=== PATIENT | female | born 1990 | race Caucasian/White ===

== ENCOUNTER 2016-10-06 08:16 | Emergency (ER) | payer BC, MEDICAID ==
[2016-10-06 08:21] VITALS: TEMP 99.1
[2016-10-06] MEDS ORDERED: ONDANSETRON 4 MG/2 ML VIAL IVP ONE (08:33)
[2016-10-06] MEDS ORDERED: NS 1,000 ML IV ONE (08:33)
[2016-10-06] MEDS ORDERED: PROPARACAINE 0.5% 15 ML OPHT DROP ONE (08:35)
[2016-10-06] MEDS ORDERED: FLUORESCEIN SODIUM 1 MG STRIP OP ONE (08:35)
[2016-10-06] MEDS ORDERED: KETOROLAC 15 MG/1 ML SDV IVP ONE (08:47)
[2016-10-06] MEDS ORDERED: ACETAMINOPHEN 325 MG TAB PO ONE (08:48)
[2016-10-06] MEDS ORDERED: PROMETHAZINE HCL 25 MG/ML INJ IVP ONE (08:48)
[2016-10-06 09:08] LABS: % IMMATURE GRANULYOCYTES 0.4 % (0.0-1.1); ABSOLUTE IMMATURE GRANULOCYTES 0.03 10^3/uL (0.00-0.10); ADD DIFF? NO; ADD MORPH? NO; ADD SCAN? NO; ATYPICAL LYMPHOCYTE FLAG 0 (0-99); FRAGMENT RBC FLAG 0 (0-99); HEMATOCRIT 46.2 % (38.0-47.0); HEMOGLOBIN 15.7 g/dL (12.6-16.3); LEFT SHIFT FLG 0 (0-99); LIPEMIA HEMOLYSIS FLAG 90 (0-99); MEAN CELL HEMOGLOBIN 29.8 pg (27.9-34.1); MEAN CELL VOLUME 87.8 fL (81.5-99.8); MEAN PLATELET VOLUME 9.1 fL (8.7-11.7); PLATELET CLUMPS FLAG 10 (0-99); PLATELET COUNT 254 10^3/uL (150-400); RED BLOOD CELL COUNT 5.26 10^6/uL (4.18-5.33); RED CELL DISTRIBUTION WIDTH 13.1 % (11.5-15.2)
[2016-10-06 09:16] LABS: ANION GAP 14 mEq/L (8-16); CALCIUM 9.4 mg/dL (8.5-10.4); CARBON DIOXIDE 21 mEq/l (22-31); CHLORIDE 106 mEq/L (97-110); CREATININE 0.7 mg/dL (0.6-1.0); GLOMERULAR FILTRATION RATE > 60; GLUCOSE 81 mg/dL (70-100); POTASSIUM 4.2 mEq/L (3.5-5.2); SODIUM 141 mEq/L (134-144)
--- NOTE | 2016-10-06 09:19 | EDPHY ---
H & P Stated Complaint: Migraine;+photophobia,n/v Time Seen by Provider: 10/06/16 08:17 HPI/ROS: CHIEF COMPLAINT: Headache HISTORY OF PRESENT ILLNESS: 26-year-old female with history of migraine headaches presents the emergency department complaining a migraine headache. Patient states that she started with a mild headache for the last 4 days that didn't feel like her typical migraine so she did not take the Fiorcet that was prescribed to her for migraines until it was too late. She took it last night when her headache increased and then vomited and was not able to keep anything down. Patient reports this is her typical migraine though worse. She denies fevers, chills, confusion. Patient reports she feels unsteady her feet, patient stumbled going to the bathroom today striking her head on the wall. No LOC, she remembers then entire event. Pt denies paresthesias. She has never seen a neurologist. Pt reports she has not been sleeping well for the last couple months and she has increased life stressors. No abdominal pain, chest pain, SOB. No cough or cold symptoms, no urinary symptoms. REVIEW OF SYSTEMS: A comprehensive 10 point review of systems is otherwise negative aside from elements mentioned in the history of present illness. Source: Patient, Family Exam Limitations: No limitations - Personal History LMP (Females 10-55): Extended Cycle BCP/Inj Current Tetanus Diphtheria and Acellular Pertussis (TDAP): Yes - Medical/Surgical History Hx Asthma: No Hx Chronic Respiratory Disease: No Hx Diabetes: No Hx Cardiac Disease: No Hx Renal Disease: No Hx Cirrhosis: No Hx Alcoholism: No Hx HIV/AIDS: No Hx Splenectomy or Spleen Trauma: No Other PMH: anxiety, , migraines - Social History Smoking Status: Never smoked - Physical Exam Exam: Physical Exam Gen: Alert and Oriented, eyes closed during exam, tearful HEENT: PERRL, moist mucous membranes NECK: no meningismus CV: regular rate and regular rhythm PULM: CTAB, no wheezes ABDOMEN: soft, non tender to palpation, BS present BACK: No CVA tenderness NEURO: Neurologically grossly intact EXTREMITIES: normal appearing SKIN: no rash or break in skin on exposed skin PSYCH: answers questions appropriately. Constitutional: Initial Vital Signs Temperature (C) 37.3 C 10/06/16 08:20 Heart Rate 90 10/06/16 08:20 Respiratory Rate 16 10/06/16 08:20 Blood Pressure 129/91 H 10/06/16 08:20 O2 Sat (%) 97 10/06/16 08:20 O2 Delivery Mode Room Air Allergies/Adverse Reactions: No Known Allergies Allergy (Verified 10/06/16 08:18) Home Medications: Medication Instructions Recorded Acet/Caffeine/Buta Fioricet 1 each PO 10/06/16 [Fioricet (*)] Ondansetron Odt [Zofran Odt 4 mg 4 mg PO 10/06/16 (*)] Medical Decision Making - Diagnostics Imaging Results: Imaging Impressions Head CT 10/06/16 09:00 Impression: 1. There is no acute abnormality identified on this unenhanced CT evaluation. 2. 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 If there is further clinical concern regarding the patient's symptoms, MR imaging is suggested, if not otherwise contraindicated. Findings were discussed with Taylor Liang NP at 10:07, on 10/06/2016. Imaging: Discussed imaging studies w/ longwall machine operator helper Radiologist ED Course/Re-evaluation: IV established, CBC, chemistry panel obtained. CT brain ordered due to different nature of patients headache. Patient is given a migraine cocktail much improvement in her headache. 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 No acute abnormality. I discussed these results with the patient and her mother. She is given Neurology for follow-up. I have also discussed her stress and depression and given her information for [facility]. She has also been given [facility]. Patient is comfortable with this plan, she is given return precautions for worsening symptoms, new symptoms or concerns. Differential Diagnosis: The differential diagnosis for the patient's headache included but was not limited to subarachnoid hemorrhage, migraine headache, tension headache and infectious causes such as meningitis, pharyngitis and sinusitis. - Data Points Laboratory Results: Laboratory Results 10/06/16 08:40 10/06/16 08:40 10/06/16 10/06/16 10/06/16 08:40 08:40 08:40 WBC 6.76 10^3/uL 10^3/uL (3.80-9.50) RBC 5.26 10^6/uL 10^6/uL (4.18-5.33) Hgb 15.7 g/dL g/dL (12.6-16.3) Hct 46.2 % % (38.0-47.0) MCV 87.8 fL fL (81.5-99.8) MCH 29.8 pg pg (27.9-34.1) MCHC 34.0 g/dL g/dL (32.4-36.7) RDW 13.1 % % (11.5-15.2) Plt Count 254 10^3/uL 10^3/uL (150-400) MPV 9.1 fL fL (8.7-11.7) Neut % (Auto) 69.0 % % (39.3-74.2) Lymph % (Auto) 23.4 % % (15.0-45.0) Duval % (Auto) 5.6 % % (4.5-13.0) Eos % (Auto) 1.2 % % (0.6-7.6) Baso % (Auto) 0.4 % % (0.3-1.7) Nucleat RBC Rel Count 0.0 % % (0.0-0.2) Absolute Neuts (auto) 4.66 10^3/uL 10^3/uL (1.70-6.50) Absolute Lymphs (auto) 1.58 10^3/uL 10^3/uL (1.00-3.00) Absolute Monos (auto) 0.38 10^3/uL 10^3/uL (0.30-0.80) Absolute Eos (auto) 0.08 10^3/uL 10^3/uL (0.03-0.40) Absolute Basos (auto) 0.03 10^3/uL 10^3/uL (0.02-0.10) Absolute Nucleated RBC 0.00 10^3/uL 10^3/uL (0-0.01) Immature Gran % 0.4 % % (0.0-1.1) Immature Gran # 0.03 10^3/uL 10^3/uL (0.00-0.10) Sodium 141 mEq/L mEq/L (134-144) Potassium 4.2 mEq/L mEq/L (3.5-5.2) Chloride 106 mEq/L mEq/L (97-110) Carbon Dioxide 21 mEq/l L mEq/l (22-31) Anion Gap 14 mEq/L mEq/L (8-16) BUN 6 mg/dL L mg/dL (7-23) Creatinine 0.7 mg/dL mg/dL (0.6-1.0) Estimated GFR > 60 Glucose 81 mg/dL mg/dL (70-100) Calcium 9.4 mg/dL mg/dL (8.5-10.4) Beta HCG, Qual NEGATIVE Medications Given: Discontinued Medications Acetaminophen (Tylenol) 650 mg PO EDNOW ONE Stop: 10/06/16 08:49 Last Admin: 10/06/16 09:08 Dose: 650 mg Dexamethasone (Decadron Injection) 10 mg IVP EDNOW ONE Stop: 10/06/16 10:34 Last Admin: 10/06/16 10:57 Dose: 10 mg Diphenhydramine HCl (Benadryl Injection) 50 mg IVP EDNOW ONE Stop: 10/06/16 08:48 Last Admin: 10/06/16 09:07 Dose: 50 mg Sodium Chloride (Ns) 1,000 mls @ 0 mls/hr IV ONCE ONE PRN Reason: Wide Open Stop: 10/06/16 08:34 Last Admin: 10/06/16 08:38 Dose: 1,000 mls Ketorolac Tromethamine (Toradol) 15 mg IVP EDNOW ONE Stop: 10/06/16 08:48 Last Admin: 10/06/16 09:08 Dose: 15 mg Ondansetron HCl (Zofran) 4 mg IVP EDNOW ONE Stop: 10/06/16 08:34 Last Admin: 10/06/16 08:38 Dose: 4 mg Promethazine HCl (Phenergan) 12.5 mg IVP EDNOW ONE Stop: 10/06/16 08:49 Last Admin: 10/06/16 09:06 Dose: 12.5 mg Departure - Departure Disposition: Home, Routine, Self-Care Clinical Impression: Headache Qualifiers: Headache type: unspecified Headache chronicity pattern: acute headache Intractability: not intractable Qualified Code(s): R51 - Headache Condition: Good Instructions: Migraine Headache (ED), General Headache (ED) Additional Instructions: Follow up with neurology. Call Friday to schedule this appointment. 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 Take your migraine medications as prescribed. Establish care with the primary care doctor listed. Follow up with [facility]. Return to the emergency department for any fevers, confusion, worsening symptoms. Referrals: Hernan Maharaj DO [Medical Doctor] - As per Instructions (Neurologist exploration engineer) [facility],. [Clinic] - As per Instructions (Family practice) [facility],. [Clinic] - As per Instructions
[2016-10-06] MEDS ORDERED: DEXAMETHASONE 10 MG/ML VIAL IVP ONE (10:33)
[2016-10-06 10:52] VITALS: BP 117/56; PULSE 76; RESP 18; O2SAT 95
== END 2016-10-06 11:03 | disposition home or self-care (01) ==
DX: R51 Headache (principal); R11.10 Vomiting, unspecified
CPT/HCPCS: 96374; J1100; J1200; J1885; J2405; J2550

== ENCOUNTER 2016-10-06 21:24 | Emergency (ER) | payer MEDICAID ==
--- NOTE | 2016-10-06 21:40 | EDPHY ---
H & P Stated Complaint: migraine, seen here earlier today HPI/ROS: HPI CHIEF COMPLAINT: Headache, seen here earlier HISTORY OF PRESENT ILLNESS: This patient very pleasant 26-year-old female she does have significant past medical history migraine headaches, she presents emergency room with ongoing headache. Patient reports that she was seen earlier today for a headache. She had a normal CT scan did not show a mass or bleed. Patient states that she did get relief with migraine medication earlier in the emergency room. She went home. She states she took a nap and then woke up with a headache again. She had nausea and vomiting associated with this. She tells me over the last 24 hours she has vomited twice. She now distally reports to me that she has neck pain and a stiff neck. Denies fever. She states this is a little bit worse than her normal migraine. The sensation of pain in the center of her head with photophobia is very similar however more intense. States her headache returned this evening 7/10. Nonradiating. Center of her head. Past Medical History: Migraine headaches Past Surgical History: Social History: Denies daily use of drugs, tobacco or, does endorse daily alcohol. Family History: Noncontributory ROS REVIEW OF SYSTEMS: A comprehensive 10 point review of systems is otherwise negative aside from elements mentioned in the history of present illness. Exam Constitutional appears well nontoxic, triage nursing summary reviewed, vital signs reviewed, awake/alert. Eyes normal conjunctivae and sclera, EOMI, PERRLA. HENT normal inspection, atraumatic, moist mucus membranes, no epistaxis, neck supple/ no meningismus, no raccoon eyes. Respiratory clear to auscultation bilaterally, normal breath sounds, no respiratory distress, no wheezing. Cardiovascular rate normal, regular rhythm, no murmur, no edema, distal pulses normal. Gastrointestinal soft, non-tender, no rebound, no guarding, normal bowel sounds, no distension, no pulsatile mass. Genitourinary no CVA tenderness. Musculoskeletal no midline vertebral tenderness, full range of motion, no calf swelling, no tenderness of extremities, no meningismus, good pulses, neurovascularly intact. Skin pink, warm, & dry, no rash, skin atraumatic. Neurologic I do not appreciate any meningeal signs. awake, alert and oriented x 3, AAOx3, moves all 4 extremities equally, motor intact, sensory intact, CN II -XII intact, normal cerebellar, normal vision, normal speech. Psychiatric normal mood/affect. Heme/Lymph/Immune no lymphadenopathy. Differential Diagnosis: Includes but is not limited to in a particular order ongoing migraine headache, tension headache, cluster headache, intracranial bleed, subarachnoid hemorrhage, viral meningitis, bacterial meningitis. Medical Decision Making: Plan for this patient IV establishment with IV fluid bolus, migraine abortive medication, I did review her previous ER visit and CT scan. I did discuss at length about risk versus benefit of lumbar puncture. Patient is agreeable for lumbar puncture. The reason why I think this is reasonable to do is that she has ongoing headache, neck pain and neck stiffness. This is her 2nd ER visit in less than 24 hours. She otherwise appears well nontoxic I think meningitis is unlikely however will rule out. Re-evaluation: Procedure: Lumbar puncture. Indication: Headache, neck pain, stiff neck After verbal informed consent from patient explaining the risks including infection, bleeding, and neurologic damage, a lumbar puncture was performed after the patient was prepped and draped in the usual fashion. The back was anesthetized with 1% lidocaine. Approximately 4 cc of clear fluid was obtained. Opening pressure was not obtained. There were no complications. The procedure was performed by myself. This patient tolerated this procedure very well. Clear CSF was removed. No complications. 1226: Re-evaluation at this time patient resting comfortably. Headache is resolved. She is feeling much better. Denies any neck pain fever vomiting or ongoing headache. Feeling much better. She would like to go home. Return precautions discussed. Also give her return precautions about a post LP headache. She understands. Source: Patient - Personal History LMP (Females 10-55): Over 28 Days Ago Current Tetanus/Diphtheria Vaccine: Yes - Medical/Surgical History Hx Asthma: No Hx Chronic Respiratory Disease: No Hx Diabetes: No Hx Cardiac Disease: No Hx Renal Disease: No Hx Cirrhosis: No Hx Alcoholism: No Hx HIV/AIDS: No Hx Splenectomy or Spleen Trauma: No Other PMH: PMHx: anxiety, migraines. PSHx: C section - Social History Smoking Status: Never smoked Constitutional: Initial Vital Signs Temperature (C) 37.4 C 10/06/16 21:30 Heart Rate 88 10/06/16 21:30 Respiratory Rate 16 10/06/16 21:30 Blood Pressure 126/77 H 10/06/16 21:30 O2 Sat (%) 94 10/06/16 21:30 O2 Delivery Mode Room Air Allergies/Adverse Reactions: No Known Allergies Allergy (Verified 10/06/16 08:18) Home Medications: Medication Instructions Recorded Hydrocodone/APAP 325 [Roggen 1 - 2 tab PO Q4H PRN #10 tab 10/07/16 5325] Medical Decision Making - Data Points Laboratory Results: Laboratory Results 10/06/16 22:00 10/06/16 22:00 10/06/16 10/06/16 10/06/16 22:10 22:10 22:10 WBC RBC Hgb Hct MCV MCH MCHC RDW Plt Count MPV Neut % (Auto) Lymph % (Auto) Bath % (Auto) Eos % (Auto) Baso % (Auto) Nucleat RBC Rel Count Absolute Neuts (auto) Absolute Lymphs (auto) Absolute Monos (auto) Absolute Eos (auto) Absolute Basos (auto) Absolute Nucleated RBC Immature Gran % Immature Gran # Sodium Potassium Chloride Carbon Dioxide Anion Gap BUN Creatinine Estimated GFR Glucose Calcium CSF Tube Number 4 1 CSF Appearance CLEAR TNP (CLEAR) CSF Color COLORLESS TNP (COLORLESS) CSF Supernatant COLORLESS TNP (COLORLESS) CSF WBC 0 /mm3 /mm3 TNP (0-5) CSF RBC 2 /mm3 H /mm3 TNP (0-0) CSF Glucose 75 mg/dL mg/dL (50-75) CSF Total Protein 35 mg/dL mg/dL (12-60) CSF West Nile IgG Ab Pending CSF West Nile IgM Ab Pending CSF West Nile Interp Pending 10/06/16 10/06/16 22:00 22:00 WBC 7.45 10^3/uL 10^3/uL (3.80-9.50) RBC 5.11 10^6/uL 10^6/uL (4.18-5.33) Hgb 15.3 g/dL g/dL (12.6-16.3) Hct 45.1 % % (38.0-47.0) MCV 88.3 fL fL (81.5-99.8) MCH 29.9 pg pg (27.9-34.1) MCHC 33.9 g/dL g/dL (32.4-36.7) RDW 12.9 % % (11.5-15.2) Plt Count 280 10^3/uL 10^3/uL (150-400) MPV 9.1 fL fL (8.7-11.7) Neut % (Auto) 87.0 % H % (39.3-74.2) Lymph % (Auto) 9.0 % L % (15.0-45.0) Bath % (Auto) 3.5 % L % (4.5-13.0) Eos % (Auto) 0.0 % L % (0.6-7.6) Baso % (Auto) 0.1 % L % (0.3-1.7) Nucleat RBC Rel Count 0.0 % % (0.0-0.2) Absolute Neuts (auto) 6.48 10^3/uL 10^3/uL (1.70-6.50) Absolute Lymphs (auto) 0.67 10^3/uL L 10^3/uL (1.00-3.00) Absolute Monos (auto) 0.26 10^3/uL L 10^3/uL (0.30-0.80) Absolute Eos (auto) 0.00 10^3/uL L 10^3/uL (0.03-0.40) Absolute Basos (auto) 0.01 10^3/uL L 10^3/uL (0.02-0.10) Absolute Nucleated RBC 0.00 10^3/uL 10^3/uL (0-0.01) Immature Gran % 0.4 % % (0.0-1.1) Immature Gran # 0.03 10^3/uL 10^3/uL (0.00-0.10) Sodium 141 mEq/L mEq/L (134-144) Potassium 4.5 mEq/L mEq/L (3.5-5.2) Chloride 108 mEq/L mEq/L (97-110) Carbon Dioxide 20 mEq/l L mEq/l (22-31) Anion Gap 13 mEq/L mEq/L (8-16) BUN 9 mg/dL mg/dL (7-23) Creatinine 0.7 mg/dL mg/dL (0.6-1.0) Estimated GFR > 60 Glucose 117 mg/dL H mg/dL (70-100) Calcium 9.7 mg/dL mg/dL (8.5-10.4) CSF Tube Number CSF Appearance CSF Color CSF Supernatant CSF WBC CSF RBC CSF Glucose CSF Total Protein CSF West Nile IgG Ab CSF West Nile IgM Ab CSF West Nile Interp Microbiology Results: MICROBIOLOGY 10/06/16 22:10 Cerebral Spinal Fluid Gram Stain - Final Medications Given: Discontinued Medications Dexamethasone (Decadron Injection) 10 mg IVP EDNOW ONE Stop: 10/06/16 21:47 Last Admin: 10/06/16 22:00 Dose: 10 mg Diphenhydramine HCl (Benadryl Injection) 50 mg IVP EDNOW ONE Stop: 10/06/16 21:47 Last Admin: 10/06/16 22:01 Dose: 50 mg Sodium Chloride (Ns) 1,000 mls @ 0 mls/hr IV ONCE ONE; Wide Open PRN Reason: Protocol Stop: 10/06/16 21:47 Last Admin: 10/06/16 21:55 Dose: 1,000 mls Ketorolac Tromethamine (Toradol) 30 mg IVP EDNOW ONE Stop: 10/06/16 21:47 Last Admin: 10/06/16 22:01 Dose: 30 mg Metoclopramide HCl (Reglan Injection) 10 mg IVP EDNOW ONE Stop: 10/06/16 21:47 Last Admin: 10/06/16 22:01 Dose: 10 mg Departure - Departure Disposition: Home, Routine, Self-Care Clinical Impression: Migraine headache Qualifiers: Migraine type: other Status migrainosus presence: without status migrainosus Intractability: not intractable Qualified Code(s): G43.809 - Other migraine, not intractable, without status migrainosus Condition: Good Instructions: Acute Headache (ED) Additional Instructions: 1. Stay well-hydrated drink lots of fluids. 2. Return emergency room if you have worsening headache fever vomiting. Referrals: NONE *PRIMARY CARE P,. [Primary Care Provider] - As per Instructions Prescriptions: Hydrocodone/APAP 5/325 [Roggen 5/325] 1 - 2 tab PO Q4H PRN #10 tab PRN Reason: Pain, Moderate
[2016-10-06] MEDS ORDERED: METOCLOPRAMIDE 10 MG/2 ML VIAL IVP ONE (21:46)
[2016-10-06] MEDS ORDERED: DEXAMETHASONE 10 MG/ML VIAL IVP ONE (21:46)
[2016-10-06] MEDS ORDERED: KETOROLAC 30 MG/1 ML SDV IVP ONE (21:46)
[2016-10-06] MEDS ORDERED: NS 1,000 ML IV ONE (21:46)
[2016-10-06 22:11] LABS: % IMMATURE GRANULYOCYTES 0.4 % (0.0-1.1); ABSOLUTE IMMATURE GRANULOCYTES 0.03 10^3/uL (0.00-0.10); ADD DIFF? NO; ADD MORPH? NO; ADD SCAN? NO; ATYPICAL LYMPHOCYTE FLAG 0 (0-99); FRAGMENT RBC FLAG 0 (0-99); HEMATOCRIT 45.1 % (38.0-47.0); HEMOGLOBIN 15.3 g/dL (12.6-16.3); LEFT SHIFT FLG 0 (0-99); LIPEMIA HEMOLYSIS FLAG 90 (0-99); MEAN CELL HEMOGLOBIN 29.9 pg (27.9-34.1); MEAN CELL HEMOGLOBIN CONCENTR. 33.9 g/dL (32.4-36.7); MEAN CELL VOLUME 88.3 fL (81.5-99.8); MEAN PLATELET VOLUME 9.1 fL (8.7-11.7); PLATELET CLUMPS FLAG 0 (0-99); PLATELET COUNT 280 10^3/uL (150-400); RED BLOOD CELL COUNT 5.11 10^6/uL (4.18-5.33); RED CELL DISTRIBUTION WIDTH 12.9 % (11.5-15.2)
[2016-10-06 22:21] LABS: ANION GAP 13 mEq/L (8-16); CALCIUM 9.7 mg/dL (8.5-10.4); CARBON DIOXIDE 20 mEq/l (22-31); CHLORIDE 108 mEq/L (97-110); CREATININE 0.7 mg/dL (0.6-1.0); GLOMERULAR FILTRATION RATE > 60; GLUCOSE 117 mg/dL (70-100); POTASSIUM 4.5 mEq/L (3.5-5.2); SODIUM 141 mEq/L (134-144)
[2016-10-06 22:31] LABS: CSF APPEARANCE CLEAR (CLEAR); CSF COLOR COLORLESS (COLORLESS); CSF SUPERNATANT COLORLESS (COLORLESS); WBC, CSF 0 /mm3 (0-5)
[2016-10-06 22:38] LABS: PROTEIN, CSF 35 mg/dL (12-60)
[2016-10-07 00:35] VITALS: BP 128/83; PULSE 59; RESP 18; TEMP 98.4; O2SAT 96
== END 2016-10-07 00:34 | disposition home or self-care (01) ==
PROC: 009U3ZX Drainage of Spinal Canal, Percutaneous Approach, Diagnostic (ICD-10-PCS; principal; 2016-10-06)
DX: G43.809 Other migraine, not intractable, without status migrainosus (principal); E86.9 Volume depletion, unspecified
CPT/HCPCS: 96374; J1100; J1200; J1885; J2765

== ENCOUNTER 2016-10-09 13:32 | Emergency (ER) | payer MEDICAID ==
[2016-10-09 13:39] VITALS: TEMP 98.2
--- NOTE | 2016-10-09 14:11 | EDPHY ---
H & P Smoking Status: Never smoked Time Seen by Provider: 10/09/16 13:54 HPI/ROS: CHIEF COMPLAINT: Headache HISTORY OF PRESENT ILLNESS: Patient is a 18-year-old female who presents emergency department with "migraine headache." Patient has an ongoing history migraine headaches. Earlier this week, on 10/06, she was seen in the emergency department for a migraine headache. She had a negative CT scan. She was discharged home but returned later that day. She was seen by Dr. Bustos on her 2nd visit. She had a lumbar puncture performed and was normal. She states she did well on Friday and Friday. However today at noon she developed a headache that was diffuse. She then states "a migraine started." She reports severe frontal headache. Does not radiate to her neck. She has had nausea with no vomiting. She reports photophobia. She saw Dr. Maharaj from Neurology. He evaluated the patient and stated that this could be a post LP headache. He also recommend that she have an MRI without contrast. REVIEW OF SYSTEMS: My complete review of systems is negative except as mentioned in the HPI. ( Rachna Weber) Past Medical/Surgical History: Includes migraine headaches Past surgical history: Social history: Patient denies drugs or or tobacco. She drinks alcohol regularly. Family history: Noncontributory (Rachna Weber) Physical Exam: Vitals noted GENERAL: Mild acute pain distress, alert. HEENT: Eyes normal to inspection, normal pharynx, no signs of dehydration. NECK: No thyromegaly, no lymphadenopathy, supple. No signs of meningismus. RESPIRATORY: Clear to auscultation bilaterally, no rales, rhonchi or wheezing. CVS: Regular rate and rhythm, no rubs, murmurs, or gallops. ABDOMEN: Soft, nontender, nondistended, no organomegaly. BACK: Normal to inspection, no CVA tenderness. SKIN: Normal color, no rash, warm, dry. No pallor. EXTREMITIES: No pedal edema, no joint swelling. NEURO/PSYCH: Higher functions: Alert and Oriented x3. Normal speech and cognition. Normal mood and affect. Cranial nerves: Normal as tested. Cerebellar: Normal as tested. Good finger to nose, good [id number], normal gait. Peripheral exam: Normal motor exam. Normal sensation. (Sovndal,Rachna S) Constitutional: Initial Vital Signs Temperature (C) 36.8 C 10/09/16 13:35 Heart Rate 73 10/09/16 13:35 Respiratory Rate 16 10/09/16 13:35 Blood Pressure 138/90 H 10/09/16 13:35 O2 Sat (%) 97 10/09/16 13:35 Allergies/Adverse Reactions: No Known Allergies Allergy (Verified 10/06/16 08:18) Home Medications: Medication Instructions Recorded Hydrocodone/APAP 5/325 [Luana 1 - 2 tab PO Q4H PRN #10 tab 10/07/16 5/325] Medical Decision Making ED Course/Re-evaluation: In the emergency department I discussed possible etiologies with the patient. I answered all her questions. I reviewed the patient's previous medical record. I reviewed the order from Dr. Maharaj. There was concern that the patient could have a Chiari malformation. I discussed the plan with the patient. She will be treated for her headache and MRI will be ordered. If her symptoms persist after treatment I will consult anesthesia for potential blood patch. Patient was given Solu-Medrol 125 mg IV, Reglan 10 mg IV, Benadryl 25 mg IV, toradol 30 mg IV and Zofran 4 mg IV. 1500: Patient is signed out to Dr. Stovall at change of shift. The patient is awaiting MRI imaging. (Rachna Weber S) Differential Diagnosis: My differential includes but is not limited to migraine, car malformation, CVA, subarachnoid hemorrhage, subdural hematoma, epidural hematoma, post LP headache , pseudotumor cerebri (Rachna Weber) Other Provider: I assumed care of the patient from Dr. Weber at 3pm pending an MRI. Results of the MRI demonstrate no evidence of a Chiari malformation. The study results reported to me by Dr. Gonzalez at 3:30 p.m.. I re-evaluated the patient at 3:40 p.m.. I informed her of the results of the MRI. The patient states that her headache has markedly improved. She does not have a positional headache at this point time. There is nothing to suggest that she would benefit from a blood patch at this point time. The patient is comfortable being discharged home with instructions to return to the ED for the development of a severe positional headache, fever, acute neurologic symptoms or other concerns. The patient has been prescribed steroids and Topamax by the neurologist. I have told her to withhold her steroids today because she received a dose of Solu-Medrol in the ED. (Jeison Stovall) - Data Points Laboratory Results: Laboratory Results 10/09/16 14:00 10/09/16 14:00 10/09/16 10/09/16 10/09/16 14:00 14:00 14:00 WBC 8.04 10^3/uL 10^3/uL (3.80-9.50) RBC 5.23 10^6/uL 10^6/uL (4.18-5.33) Hgb 15.4 g/dL g/dL (12.6-16.3) Hct 46.9 % % (38.0-47.0) MCV 89.7 fL fL (81.5-99.8) MCH 29.4 pg pg (27.9-34.1) MCHC 32.8 g/dL g/dL (32.4-36.7) RDW 13.1 % % (11.5-15.2) Plt Count 260 10^3/uL 10^3/uL (150-400) MPV 8.9 fL fL (8.7-11.7) Neut % (Auto) 70.0 % % (39.3-74.2) Lymph % (Auto) 22.5 % % (15.0-45.0) Lares % (Auto) 5.8 % % (4.5-13.0) Eos % (Auto) 0.7 % % (0.6-7.6) Baso % (Auto) 0.5 % % (0.3-1.7) Nucleat RBC Rel Count 0.0 % % (0.0-0.2) Absolute Neuts (auto) 5.62 10^3/uL 10^3/uL (1.70-6.50) Absolute Lymphs (auto) 1.81 10^3/uL 10^3/uL (1.00-3.00) Absolute Monos (auto) 0.47 10^3/uL 10^3/uL (0.30-0.80) Absolute Eos (auto) 0.06 10^3/uL 10^3/uL (0.03-0.40) Absolute Basos (auto) 0.04 10^3/uL 10^3/uL (0.02-0.10) Absolute Nucleated RBC 0.00 10^3/uL 10^3/uL (0-0.01) Immature Gran % 0.5 % % (0.0-1.1) Immature Gran # 0.04 10^3/uL 10^3/uL (0.00-0.10) Sodium 139 mEq/L mEq/L (134-144) Potassium 4.3 mEq/L mEq/L (3.5-5.2) Chloride 105 mEq/L mEq/L (97-110) Carbon Dioxide 22 mEq/l mEq/l (22-31) Anion Gap 12 mEq/L mEq/L (8-16) BUN 9 mg/dL mg/dL (7-23) Creatinine 0.7 mg/dL mg/dL (0.6-1.0) Estimated GFR > 60 Glucose 79 mg/dL mg/dL (70-100) Calcium 9.3 mg/dL mg/dL (8.5-10.4) Beta HCG, Qual NEGATIVE Medications Given: Discontinued Medications Diphenhydramine HCl (Benadryl Injection) 25 mg IVP EDNOW ONE Stop: 10/09/16 14:18 Last Admin: 10/09/16 14:24 Dose: 25 mg Ketorolac Tromethamine (Toradol) 30 mg IVP EDNOW ONE Stop: 10/09/16 14:19 Last Admin: 10/09/16 14:24 Dose: 30 mg Methylprednisolone Sodium Succinate (Solu-Medrol) 125 mg IVP EDNOW ONE Stop: 10/09/16 14:18 Last Admin: 10/09/16 14:24 Dose: 125 mg Metoclopramide HCl (Reglan Injection) 10 mg IVP EDNOW ONE Stop: 10/09/16 14:19 Last Admin: 10/09/16 14:24 Dose: 10 mg Ondansetron HCl (Zofran) 4 mg IVP EDNOW ONE Stop: 10/09/16 14:19 Last Admin: 10/09/16 14:24 Dose: 4 mg Departure - Departure Disposition: Home, Routine, Self-Care Clinical Impression: Acute headache Qualifiers: Headache type: unspecified Intractability: not intractable Qualified Code(s): R51 - Headache Condition: Good Instructions: Acute Headache (ED) Additional Instructions: 1. Please follow up as scheduled with your neurologist. 2. Begin medications tomorrow as directed for your headache. You may take Topamax this evening. 3. Please return to the ED for severe headache which is positional in nature, fever, acute neurologic symptoms or other concerns. Referrals: Hernan Maharaj, DO [Medical Doctor] - 3-4 days, if not improved
[2016-10-09] MEDS ORDERED: methylPREDNISolone SOD SUCC 125 MG/2 ML VIAL IVP ONE (14:17)
[2016-10-09] MEDS ORDERED: METOCLOPRAMIDE 10 MG/2 ML VIAL IVP ONE (14:18)
[2016-10-09] MEDS ORDERED: KETOROLAC 30 MG/1 ML SDV IVP ONE (14:18)
[2016-10-09] MEDS ORDERED: ONDANSETRON 4 MG/2 ML VIAL IVP ONE (14:18)
[2016-10-09 14:36] LABS: % IMMATURE GRANULYOCYTES 0.5 % (0.0-1.1); ABSOLUTE IMMATURE GRANULOCYTES 0.04 10^3/uL (0.00-0.10); ADD DIFF? NO; ADD MORPH? NO; ADD SCAN? NO; ATYPICAL LYMPHOCYTE FLAG 0 (0-99); FRAGMENT RBC FLAG 0 (0-99); HEMATOCRIT 46.9 % (38.0-47.0); HEMOGLOBIN 15.4 g/dL (12.6-16.3); LEFT SHIFT FLG 0 (0-99); LIPEMIA HEMOLYSIS FLAG 80 (0-99); MEAN CELL HEMOGLOBIN 29.4 pg (27.9-34.1); MEAN CELL HEMOGLOBIN CONCENTR. 32.8 g/dL (32.4-36.7); MEAN CELL VOLUME 89.7 fL (81.5-99.8); MEAN PLATELET VOLUME 8.9 fL (8.7-11.7); PLATELET CLUMPS FLAG 20 (0-99); PLATELET COUNT 260 10^3/uL (150-400); RED BLOOD CELL COUNT 5.23 10^6/uL (4.18-5.33); RED CELL DISTRIBUTION WIDTH 13.1 % (11.5-15.2)
[2016-10-09 15:01] LABS: ANION GAP 12 mEq/L (8-16); CALCIUM 9.3 mg/dL (8.5-10.4); CARBON DIOXIDE 22 mEq/l (22-31); CHLORIDE 105 mEq/L (97-110); CREATININE 0.7 mg/dL (0.6-1.0); GLOMERULAR FILTRATION RATE > 60; GLUCOSE 79 mg/dL (70-100); POTASSIUM 4.3 mEq/L (3.5-5.2); SODIUM 139 mEq/L (134-144)
[2016-10-09 15:47] VITALS: BP 132/72; PULSE 74; RESP 18; O2SAT 94
== END 2016-10-09 15:47 | disposition home or self-care (01) ==
DX: R51 Headache (principal)
CPT/HCPCS: 96374; J1200; J1885; J2405; J2765

== ENCOUNTER 2016-10-11 12:48 | Emergency (ER) | payer MEDICAID ==
[2016-10-11 12:59] VITALS: TEMP 98.2
--- NOTE | 2016-10-11 13:33 | EDPHY ---
H & P Stated Complaint: 4th visit for almendarez/migraine/had lp on friday Time Seen by Provider: 10/11/16 13:33 HPI/ROS: CHIEF COMPLAINT: Persistent headache, positional HISTORY OF PRESENT ILLNESS: The patient presents to the ED with persistent positional headache following a lumbar puncture. The patient has had multiple ED visits over the past week for evaluation of headache which have included a CT scan of the brain, MRI of the brain and lumbar puncture all of which are unremarkable. The patient was initially not having features of a positional headache but she has developed a positional headache over the past day. She reports her headache is a 0 to 1/10 when she lies flat and 8 to 9/10 when she is upright. She denies fever. She denies acute neurologic symptoms. She denies additional complaints. The patient has been taking Topamax and steroids for her headache over the past several days. There has been some improvement in her basal headache with these interventions. REVIEW OF SYSTEMS: A comprehensive 10 point review of systems is otherwise negative aside from elements mentioned in the history of present illness. Source: Patient Exam Limitations: No limitations - Personal History LMP (Females 10-55): Over 28 Days Ago Current Tetanus/Diphtheria Vaccine: Yes - Medical/Surgical History Hx Asthma: No Hx Chronic Respiratory Disease: No Hx Diabetes: No Hx Cardiac Disease: No Hx Renal Disease: No Hx Cirrhosis: No Hx Alcoholism: No Hx HIV/AIDS: No Hx Splenectomy or Spleen Trauma: No Other PMH: PMHx: anxiety, migraines. PSHx: C section - Social History Smoking Status: Never smoked - Physical Exam Exam: General Appearance: Alert, no distress Eyes: Pupils equal and round no pallor or injection ENT, Mouth: Mucous membranes moist Respiratory: There are no retractions, lungs are clear to auscultation Cardiovascular: Regular rate and rhythm Gastrointestinal: Abdomen is soft and nontender, no masses, bowel sounds normal Neurological: A&O, normal motor function, normal sensory exam, normal cranial nerves Skin: Warm and dry, no rashes Musculoskeletal: Neck is supple nontender Extremities: symmetrical, full range of motion Constitutional: Initial Vital Signs Temperature (C) 36.8 C 10/11/16 12:57 Heart Rate 98 10/11/16 12:57 Respiratory Rate 18 10/11/16 12:57 Blood Pressure 131/95 H 10/11/16 12:57 O2 Sat (%) 93 10/11/16 12:57 O2 Delivery Mode Room Air Allergies/Adverse Reactions: No Known Allergies Allergy (Verified 10/11/16 12:57) Home Medications: Medication Instructions Recorded Hydrocodone/APAP 5/325 [[place] 1 - 2 tab PO Q4H PRN #10 tab 10/07/16 5/325] Topamax 10/11/16 Medical Decision Making ED Course/Re-evaluation: The patient presents to the emergency department with a positional headache following lumbar puncture for several days ago. The patient is neurologically intact without evidence of meningitis. I have ordered a blood patch. The patient was taken for a blood patch. She return to the emergency department was kept in a flat position. I re-evaluated the patient at 5:45 p.m.. I have set the patient up. She reports her positional headache has improved. Differential Diagnosis: Differential diagnosis considered includes migraine syndrome, tension headache, post lumbar puncture headache - Data Points Medications Given: Discontinued Medications Ondansetron HCl (Zofran) 4 mg IVP ONCE ONE Stop: 10/11/16 17:01 Last Admin: 10/11/16 17:00 Dose: 4 mg Departure - Departure Disposition: Home, Routine, Self-Care Clinical Impression: Headache following lumbar puncture Condition: Good Instructions: Lumbar Puncture (ED) Additional Instructions: Directions for Epidural Blood Patch care notes were given to patient by Yun [employer] mill tender. Referrals: Hernan Maharaj DO [Medical Doctor] - As per Instructions
[2016-10-11] MEDS ORDERED: ONDANSETRON 4 MG/2 ML VIAL ONE (16:13)
[2016-10-11] MEDS ORDERED: IOPAMIDOL (ISOVUE-M 300) 15 ML VIAL ONE (16:22)
[2016-10-11] MEDS ORDERED: ONDANSETRON 4 MG/2 ML VIAL IVP ONE (17:00)
[2016-10-11 18:40] VITALS: BP 138/79; PULSE 85; RESP 20; O2SAT 97
== END 2016-10-11 18:40 | disposition home or self-care (01) ==
DX: G97.1 Other reaction to spinal and lumbar puncture (principal)
CPT/HCPCS: 96374; J2405; Q9967